=== PATIENT | female | born 1965 | race Caucasian/White ===

== ENCOUNTER 2016-11-10 13:20 | Emergency (ER) | payer OTHER ==
[~2016-11-10] VITALS: Ht 157.5 cm; Wt 62.1 kg
[~2016-11-10 13:20] MED LIST: Levaquin PO; SINGULAIR10 MG PO; SYNTHROID112 MCG PO; VENTOLIN HFA18 GM IH; oxyCODONE PO
[2016-11-10 14:24] LABS: EOSINOPHIL (%) 3.7 % (0-5); EOSINOPHIL COUNT 0.2 K/uL (0-0.3); HEMATOCRIT 42.4 % (36.0-46.0); IMMATURE GRANULOCYTE (%) 0.3 % (0.0-0.7); LYMPHOCYTE COUNT 1.6 K/uL (1.0-2.8); MCH 28.3 PG (29.0-34.0); MCV 85.8 FL (83-99); MEAN PLAT.VOLUME 9.7 uM^3 (9.5-12.4); MONOCYTE (%) 9.1 % (3-12); MONOCYTE COUNT 0.6 K/uL (0-0.8); NEUTROPHIL (%) 61.5 % (45-76); PLATELET COUNT 273 K/uL (156-360); RBC DIS.WIDTH-CV 12.8 % (11.8-14.6); RED BLOOD COUNT 4.94 M/uL (3.80-5.20); WHITE BLOOD COUNT 6.5 K/uL (4.1-10.2)
[2016-11-10 14:33] LABS: CHLORIDE 112 mEq/L (99-109); SODIUM 146 mEq/L (136-147)
[2016-11-10 14:36] LABS: GLUCOSE 94 mg/dL (70-99)
[2016-11-10 14:37] LABS: ANION GAP 9 MEQ/L (2-14)
[2016-11-10 14:38] LABS: TOTAL BILIRUBIN 0.5 mg/dL (0.0-1.0)
[2016-11-10 14:39] LABS: ALKALINE PHOSPHATASE 62 IU/L (3-129)
[2016-11-10 14:40] LABS: GFR ESTIMATE (CALCULATED) > 59 mL/min/
[2016-11-10 14:41] LABS: DIRECT BILIRUBIN 0.2 mg/dL (0.0-0.3); UREA NITROGEN (BUN) 8 mg/dL (9-23)
[2016-11-10 15:04] VITALS: BP 126/80
== END 2016-11-10 15:04 | disposition home or self-care (01) ==
LOC: EME 13:20
PROVIDERS: Nurse Practitioner Family
DX: S61.234A Puncture wound without foreign body of right ring finger without damage to nail, initial encounter (principal); W26.8XXA Contact with other sharp object(s), not elsewhere classified, initial encounter; Y92.239 Unspecified place in hospital as the place of occurrence of the external cause; Y99.0 Civilian activity done for income or pay; Z77.21 Contact with and (suspected) exposure to potentially hazardous body fluids; E03.9 Hypothyroidism, unspecified
CPT/HCPCS: 80048; 80076; 85025; 99281; 99284